=== PATIENT | female | born 1995 | race Caucasian/White ===

== ENCOUNTER 2016-02-21 14:29 | Emergency (ER) | payer SELFPAY ==
[~2016-02-21] VITALS: Ht 160 cm; Wt 74.8 kg
[~2016-02-21 14:29] MED LIST: ANAPROX275 MG PO; ATARAX,VISTARIL25 MG PO; ATARAX,VISTARIL50 MG PO; AUGMENTIN875 MG PO; CEFDINIR300 MG PO; IVERMECTIN3 MG PO; KEFLEX500 MG PO; NOHOMEMEDS; PRENATAL TABLE1 EACH PO; PYRIDIUM200 MG PO; ULTRAM50 MG PO; ZOFRAN ODT4 MG PO; ZOFRAN ODT8 MG PO; ZOFRAN4 MG PO
[2016-02-21 15:31] LABS: ADD MIUA? YES; BILIRUBIN NEGATIVE; BLOOD NEGATIVE; COLOR YELLOW ((YELLOW)); GLUCOSE (STRIP) 250; KETONES TRACE; LEUKOCYTES LARGE; NITRITE NEGATIVE; PROTEIN (STRIP) NEGATIVE; SPECIFIC GRAVITY 1.016 (1.000-1.030)
[2016-02-21 15:51] LABS: BACTERIA 1+; EPITHELIAL CELLS 2+; MUCUS NONE SEEN; RED BLOOD CELLS 0-5 /HPF (0-5); UCUL ADDED? NO; WHITE BLOOD CELLS 20-30 /HPF (0-5)
[2016-02-21 15:52] LABS: CASTS NONE SEEN /LPF; CRYSTALS NONE SEEN
[2016-02-21 15:59] LABS: HEMATOCRIT 34.7 % (36.0-46.0); MCH 29.9 PG (29.0-34.0); MCHC 34.9 G/DL (30.0-36.0); MCV 85.7 FL (83-99); MEAN PLAT.VOLUME 10.2 uM^3 (9.5-12.4); PLATELET COUNT 176 K/uL (156-360); RBC DIS.WIDTH-CV 13.7 % (11.8-14.6); RBC DIS.WIDTH-SD 41.9 % (39-53); RED BLOOD COUNT 4.05 M/uL (3.80-5.20); WHITE BLOOD COUNT 6.2 K/uL (4.1-10.2)
[2016-02-21 16:10] LABS: CHLORIDE 109 mEq/L (99-109); POTASSIUM 3.3 mEq/L (3.7-5.4); SODIUM 138 mEq/L (136-147)
[2016-02-21 16:12] LABS: GLUCOSE 129 mg/dL (70-99)
[2016-02-21 16:13] LABS: ANION GAP 10 MEQ/L (2-14)
[2016-02-21 16:16] LABS: GFR ESTIMATE (CALCULATED) > 59 mL/min/
[2016-02-21 16:17] LABS: UREA NITROGEN (BUN) 6 mg/dL (9-23)
[2016-02-21 16:25] LABS: QUANTITATIVE HCG 5785.2 MIU/ML
[2016-02-21] MEDS ORDERED: KEFLEX500 MG PO (17:30)
[2016-02-21 20:12] VITALS: BP 109/65
== END 2016-02-21 20:14 | disposition home or self-care (01) ==
LOC: EME 14:29
PROVIDERS: Emergency Medicine
DX: O20.0 Threatened abortion (principal); O23.42 Unspecified infection of urinary tract in pregnancy, second trimester; N39.0 Urinary tract infection, site not specified; Z3A.20 20 weeks gestation of pregnancy; Z87.891 Personal history of nicotine dependence
CPT/HCPCS: 76805; 80048; 81003; 84702; 85027; 99281; 99285; J0696; J7030; J7050

== ENCOUNTER 2016-03-17 22:40 | Outpatient (CLI) | payer OTHER ==
[~2016-03-17] VITALS: Ht 160 cm; Wt 77.1 kg
[2016-03-17 23:17] VITALS: BP 114/58
[2016-03-17] MEDS ORDERED: MONISTAT 745 GM VG (23:32)
== END 2016-03-18 00:05 | disposition home or self-care (01) ==
LOC: LDRP-OP 22:40 → 2WEST 22:41
DX: R10.9 Unspecified abdominal pain (principal); O99.89 Other specified diseases and conditions complicating pregnancy, childbirth and the puerperium; Z3A.23 23 weeks gestation of pregnancy
CPT/HCPCS: 59025; G0378

== ENCOUNTER 2016-04-14 16:47 | Outpatient (CLI) | payer OTHER ==
[~2016-04-14] VITALS: Ht 160 cm; Wt 78.0 kg
[~2016-04-14 16:47] MED LIST changes: +MONISTAT 745 GM VG
[2016-04-14 16:58] VITALS: BP 120/70
[2016-04-14 18:01] VITALS: BP 88/51
[2016-04-14 19:13] VITALS: BP 93/51
[2016-04-14 19:21] LABS: ADD MIUA? YES; BILIRUBIN NEGATIVE; BLOOD NEGATIVE; COLOR YELLOW ((YELLOW)); GLUCOSE (STRIP) NEGATIVE; KETONES NEGATIVE; LEUKOCYTES TRACE; NITRITE NEGATIVE; PROTEIN (STRIP) NEGATIVE; SPECIFIC GRAVITY 1.014 (1.000-1.030); UROBILINOGEN 0.2 MG/DL (0.2-1.0)
[2016-04-14 19:23] LABS: BACTERIA RARE /HPF; EPITHELIAL CELLS 1+ /HPF; MUCUS TRACE /LPF; RED BLOOD CELLS 0-5 /HPF (0-5); WHITE BLOOD CELLS 0-5 /HPF (0-5)
[2016-04-14 22:29] LABS: CANDIDA DNA PROBE NEGATIVE; GARDNERELLA DNA PROBE NEGATIVE; INTERNAL CONTROL VALID? YES
[2016-04-16 12:15] LABS: CHLAMYDIA TRACHOMATIS NEGATIVE; NEISSERIA GONORRHOEAE NEGATIVE
== END 2016-04-14 20:04 | disposition home or self-care (01) ==
LOC: LDRP-OP 16:47 → 2WEST 16:48 → LDRP-OP 08-11 00:29
PROVIDERS: Midwife; Obstetrics & Gynecology
DX: O26.892 Other specified pregnancy related conditions, second trimester (principal); Z3A.27 27 weeks gestation of pregnancy; N89.8 Other specified noninflammatory disorders of vagina; R10.9 Unspecified abdominal pain
CPT/HCPCS: 59025; 81003; 87086; 87480; 87491; 87510; 87591; 87660; G0378

== ENCOUNTER 2016-05-10 11:14 | Outpatient (CLI) | payer OTHER ==
[~2016-05-10] VITALS: Ht 160 cm; Wt 81.2 kg
[2016-05-10 11:43] VITALS: BP 131/78
== END 2016-05-10 13:22 | disposition home or self-care (01) ==
LOC: LDRP-OP 11:14 → 2WEST 11:15 → LDRP-OP 08-11 21:14
DX: O36.8130 Decreased fetal movements, third trimester, not applicable or unspecified (principal); Z3A.31 31 weeks gestation of pregnancy
CPT/HCPCS: 59025; G0378

== ENCOUNTER 2016-05-29 19:33 | Outpatient (CLI) | payer OTHER ==
[2016-05-29 20:11] VITALS: BP 119/66
[2016-05-29 20:45] LABS: ADD MIUA? YES; BILIRUBIN NEGATIVE; BLOOD NEGATIVE; COLOR YELLOW ((YELLOW)); GLUCOSE (STRIP) NEGATIVE; KETONES 80; LEUKOCYTES NEGATIVE; NITRITE NEGATIVE; PROTEIN (STRIP) NEGATIVE
[2016-05-29 21:26] LABS: BACTERIA NONE SEEN /HPF; EPITHELIAL CELLS 1+ /HPF; MUCUS 1+ /LPF; RED BLOOD CELLS 0-5 /HPF (0-5); UCUL ADDED? NO; WHITE BLOOD CELLS 0-5 /HPF (0-5)
[2016-05-29 21:46] LABS: EOSINOPHIL (%) 0.5 % (0-5); HEMATOCRIT 33.6 % (36.0-46.0); IMMATURE GRANULOCYTE (%) 0.4 % (0.0-0.7); INSTRUMENT ABS NEUTROPHIL CT 6.6 K/uL; LYMPHOCYTE COUNT 1.1 K/uL (1.0-2.8); MCH 28.3 PG (29.0-34.0); MCHC 33.3 G/DL (30.0-36.0); MCV 84.8 FL (83-99); MEAN PLAT.VOLUME 10.4 uM^3 (9.5-12.4); MONOCYTE (%) 8.3 % (3-12); MONOCYTE COUNT 0.7 K/uL (0-0.8); NEUTROPHIL (%) 77.7 % (45-76); NEUTROPHIL COUNT 6.6 K/uL (1.8-6.4); PLATELET COUNT 221 K/uL (156-360); RBC DIS.WIDTH-CV 12.2 % (11.8-14.6); RBC DIS.WIDTH-SD 37.4 % (39-53); RED BLOOD COUNT 3.96 M/uL (3.80-5.20); WHITE BLOOD COUNT 8.5 K/uL (4.1-10.2)
[2016-05-29 22:11] LABS: CANDIDA DNA PROBE NEGATIVE; GARDNERELLA DNA PROBE NEGATIVE; INTERNAL CONTROL VALID? YES
[2016-05-31 12:20] LABS: CHLAMYDIA TRACHOMATIS NEGATIVE; NEISSERIA GONORRHOEAE NEGATIVE
== END 2016-05-29 22:42 | disposition home or self-care (01) ==
LOC: LDRP-OP 19:33 → 2WEST 19:34 → LDRP-OP 08-11 14:27
PROVIDERS: Midwife
DX: O26.893 Other specified pregnancy related conditions, third trimester (principal); R10.9 Unspecified abdominal pain; R35.0 Frequency of micturition; O28.8 Other abnormal findings on antenatal screening of mother; Z3A.33 33 weeks gestation of pregnancy; Z87.891 Personal history of nicotine dependence
CPT/HCPCS: 59025; 81003; 85025; 87480; 87491; 87510; 87591; 87660; G0378; J7120

== ENCOUNTER 2016-06-01 22:31 | Outpatient (CLI) | payer OTHER ==
[2016-06-01] MEDS ORDERED: NITROFURANTOIN100 MG PO (22:50)
[2016-06-01 23:03] VITALS: BP 117/60
== END 2016-06-01 23:45 | disposition home or self-care (01) ==
LOC: LDRP-OP 22:31 → 2WEST 22:32 → LDRP-OP 08-11 23:06
DX: O26.893 Other specified pregnancy related conditions, third trimester (principal); Z3A.34 34 weeks gestation of pregnancy
CPT/HCPCS: 59025; G0378

== ENCOUNTER 2016-06-09 18:55 | Outpatient (CLI) | payer OTHER ==
[~2016-06-09] VITALS: Ht 162.6 cm; Wt 83.2 kg
[~2016-06-09 18:55] MED LIST changes: +NITROFURANTOIN100 MG PO
[2016-06-09 19:12] VITALS: BP 118/74
[2016-06-09 20:43] VITALS: BP 124/67
[2016-06-09 23:09] VITALS: BP 105/58
== END 2016-06-10 01:20 | disposition home or self-care (01) ==
LOC: LDRP-OP 18:55 → 2WEST 18:56 → LDRP-OP 08-11 23:47
DX: O47.9 False labor, unspecified (principal); Z3A.00 Weeks of gestation of pregnancy not specified
CPT/HCPCS: 59025; G0378; J2270; J2550; J7120

== ENCOUNTER 2016-06-19 18:04 | Outpatient (CLI) | payer OTHER ==
[~2016-06-19] VITALS: Ht 162.6 cm; Wt 83.9 kg
[2016-06-19 18:16] VITALS: BP 127/69
[2016-06-19 19:12] VITALS: BP 108/57
[2016-06-19 19:45] LABS: ADD MIUA? NO; BILIRUBIN NEGATIVE; BLOOD NEGATIVE; COLOR STRAW ((YELLOW)); GLUCOSE (STRIP) NEGATIVE; KETONES NEGATIVE; LEUKOCYTES NEGATIVE; NITRITE NEGATIVE; PROTEIN (STRIP) NEGATIVE; SPECIFIC GRAVITY 1.004 (1.000-1.030); UCUL ADDED? NO; UROBILINOGEN 0.2 MG/DL (0.2-1.0)
[2016-06-21 14:02] LABS: CHLAMYDIA TRACHOMATIS NEGATIVE; NEISSERIA GONORRHOEAE NEGATIVE
== END 2016-06-19 21:15 | disposition home or self-care (01) ==
LOC: LDRP-OP 18:04 → 2WEST 18:05 → LDRP-OP 08-11 01:36
PROVIDERS: Nurse Practitioner
DX: O47.03 False labor before 37 completed weeks of gestation, third trimester (principal); Z3A.36 36 weeks gestation of pregnancy
CPT/HCPCS: 59025; 81003; 87491; 87591; G0378

== ENCOUNTER 2016-06-29 08:50 | Outpatient (CLI) | payer OTHER ==
[~2016-06-29] VITALS: Ht 162.6 cm; Wt 86.2 kg
[2016-06-29 09:08] VITALS: BP 132/77
[2016-06-29 10:33] VITALS: BP 132/56
== END 2016-06-29 10:59 | disposition home or self-care (01) ==
LOC: LDRP-OP 08:50 → 2WEST 08:51 → LDRP-OP 08-11 21:25
DX: O47.1 False labor at or after 37 completed weeks of gestation (principal); O42.92 Full-term premature rupture of membranes, unspecified as to length of time between rupture and onset of labor; Z3A.38 38 weeks gestation of pregnancy; O99.513 Diseases of the respiratory system complicating pregnancy, third trimester; J45.909 Unspecified asthma, uncomplicated
CPT/HCPCS: 59025; G0378

== ENCOUNTER 2016-06-30 04:30 | Outpatient (CLI) | payer OTHER ==
[2016-06-30 04:45] VITALS: BP 111/67
[2016-06-30 04:48] VITALS: BP 111/67
[2016-06-30 06:05] VITALS: BP 115/67
[2016-06-30 07:14] VITALS: BP 111/57
[2016-06-30 09:54] VITALS: BP 118/69
[2016-07-01] MEDS ORDERED: IBUPROFEN800 MG PO (16:40)
== END 2016-06-30 10:55 | disposition home or self-care (01) ==
LOC: LDRP-OP 04:30 → 2WEST 04:31 → LDRP-OP 08-11 13:08
DX: O47.1 False labor at or after 37 completed weeks of gestation (principal); O99.820 Streptococcus B carrier state complicating pregnancy; Z3A.38 38 weeks gestation of pregnancy
CPT/HCPCS: 59025; G0378

== ENCOUNTER 2016-07-01 07:45 | Inpatient (IN) | payer OTHER ==
[2016-07-01] VITALS (19 sets, daily range): BP systolic 98–139; BP diastolic 56–87
[2016-07-01 11:01] LABS: BASOPHIL COUNT 0.1 K/uL (0-0.1); EOSINOPHIL (%) 0.2 % (0-5); HEMATOCRIT 34.6 % (36.0-46.0); IMMATURE GRANULOCYTE (%) 0.7 % (0.0-0.7); IMMATURE GRANULOCYTE COUNT 0.1 K/uL; INSTRUMENT ABS NEUTROPHIL CT 13.1 K/uL; LYMPHOCYTE COUNT 2.4 K/uL (1.0-2.8); MCH 27.6 PG (29.0-34.0); MCHC 32.9 G/DL (30.0-36.0); MCV 83.8 FL (83-99); MEAN PLAT.VOLUME 10.7 uM^3 (9.5-12.4); MONOCYTE COUNT 1.2 K/uL (0-0.8); NEUTROPHIL (%) 77.6 % (45-76); NEUTROPHIL COUNT 13.1 K/uL (1.8-6.4); PLATELET COUNT 244 K/uL (156-360); RBC DIS.WIDTH-CV 12.7 % (11.8-14.6); RBC DIS.WIDTH-SD 38.1 % (39-53); RED BLOOD COUNT 4.13 M/uL (3.80-5.20); WHITE BLOOD COUNT 16.8 K/uL (4.1-10.2)
[2016-07-01] MEDS ORDERED: IBUPROFEN800 MG PO (16:40)
[2016-07-02 07:24] VITALS: BP 100/59
[2016-07-02 23:05] VITALS: BP 109/70
[2016-07-03 14:55] VITALS: BP 110/68
== END 2016-07-03 18:10 | disposition home or self-care (01) | DRG 775 ==
LOC: LDRP-OP 07:45 → 2WEST 07:46 → LDRP-OP 08-11 12:30
PROVIDERS: Nurse Practitioner
PROC: 00HU33Z Insertion of Infusion Device into Spinal Canal, Percutaneous Approach (ICD-10-PCS; principal; 2016-07-01)
PROC: 3E0R3CZ (ICD-10-PCS; principal; 2016-07-01)
PROC: 10E0XZZ Delivery of Products of Conception, External Approach (ICD-10-PCS; principal; 2016-07-01)
DX: O99.824 Streptococcus B carrier state complicating childbirth (principal); Z3A.38 38 weeks gestation of pregnancy; Z37.0 Single live birth
CPT/HCPCS: 85025; C1755; J2540; J3010; J7120

== ENCOUNTER 2016-08-29 17:29 | Emergency (ER) | payer OTHER ==
[~2016-08-29] VITALS: Ht 162.6 cm; Wt 78.0 kg
[~2016-08-29 17:29] MED LIST changes: +IBUPROFEN800 MG PO
[2016-08-29 18:00] LABS: ADD MIUA? YES; BILIRUBIN NEGATIVE; BLOOD SMALL; COLOR STRAW ((YELLOW)); GLUCOSE (STRIP) NEGATIVE; KETONES NEGATIVE; LEUKOCYTES TRACE; NITRITE NEGATIVE; PROTEIN (STRIP) NEGATIVE; SPECIFIC GRAVITY 1.005 (1.000-1.030); UROBILINOGEN 0.2 MG/DL (0.2-1.0)
[2016-08-29 18:02] LABS: HEMATOCRIT 42.8 % (36.0-46.0); MCH 26.7 PG (29.0-34.0); MCHC 32.2 G/DL (30.0-36.0); MCV 82.9 FL (83-99); MEAN PLAT.VOLUME 9.6 uM^3 (9.5-12.4); PLATELET COUNT 312 K/uL (156-360); RBC DIS.WIDTH-CV 12.9 % (11.8-14.6); RBC DIS.WIDTH-SD 39.5 % (39-53); RED BLOOD COUNT 5.16 M/uL (3.80-5.20); WHITE BLOOD COUNT 9.4 K/uL (4.1-10.2)
[2016-08-29 18:02] LABS: BACTERIA RARE /HPF; EPITHELIAL CELLS 1+ /HPF; MUCUS TRACE /LPF; RED BLOOD CELLS 0-5 /HPF (0-5); UCUL ADDED? NO; WHITE BLOOD CELLS 0-5 /HPF (0-5)
[2016-08-29 18:13] LABS: CHLORIDE 104 mEq/L (99-109); POTASSIUM 3.8 mEq/L (3.7-5.4); SODIUM 138 mEq/L (136-147)
[2016-08-29 18:16] LABS: ANION GAP 10 MEQ/L (2-14); GLUCOSE 121 mg/dL (70-99)
[2016-08-29 18:17] LABS: TOTAL BILIRUBIN 0.3 mg/dL (0.0-1.0)
[2016-08-29 18:18] LABS: ALKALINE PHOSPHATASE 93 IU/L (3-129)
[2016-08-29 18:19] LABS: GFR ESTIMATE (CALCULATED) > 59 mL/min/
[2016-08-29 18:20] LABS: UREA NITROGEN (BUN) 10 mg/dL (9-23)
[2016-08-29 18:29] LABS: QUANTITATIVE HCG < 4.0 MIU/ML
[2016-08-29 18:30] LABS: LIPASE 36 U/L (1.0-51.0)
[2016-08-29] MEDS ORDERED: AUGMENTIN875 MG PO (18:49)
[2016-08-29] MEDS ORDERED: ZOFRAN ODT4 MG PO (18:51)
[2016-08-29 19:25] VITALS: BP 103/60
== END 2016-08-30 01:00 | disposition home or self-care (01) ==
LOC: EME 17:29
DX: H66.93 Otitis media, unspecified, bilateral (principal); R11.2 Nausea with vomiting, unspecified; Z87.891 Personal history of nicotine dependence
CPT/HCPCS: 80053; 81003; 83690; 84702; 85027; 99281; 99283; J1885

== ENCOUNTER 2016-10-18 15:13 | Emergency (ER) | payer OTHER ==
[~2016-10-18] VITALS: Ht 160 cm; Wt 80.1 kg
[2016-10-18] MEDS ORDERED: LIDOCAINE-HC 3-07 G1 PR (17:29)
[2016-10-18] MEDS ORDERED: TRAMADOL HCL50 MG PO (17:29)
[2016-10-18] MEDS ORDERED: LIDOCAINE-HC 3-07 G2 PR (17:30)
[2016-10-18] MEDS ORDERED: LIDOCAINE HC PR (17:32)
[2016-10-18 17:41] VITALS: BP 122/81
== END 2016-10-18 17:42 | disposition home or self-care (01) ==
LOC: EME 15:13
DX: L30.9 Dermatitis, unspecified (principal)
CPT/HCPCS: 99281; 99283

== ENCOUNTER 2016-12-25 01:48 | Emergency (ER) | payer OTHER ==
[~2016-12-25] VITALS: Ht 162.6 cm; Wt 78.6 kg
[~2016-12-25 01:48] MED LIST changes: +LIDOCAINE HC PR; +LIDOCAINE-HC 3-07 G1 PR; +LIDOCAINE-HC 3-07 G2 PR; +TRAMADOL HCL50 MG PO
[2016-12-25 03:10] VITALS: BP 119/76
== END 2016-12-25 03:10 | disposition home or self-care (01) ==
LOC: EME 01:48
PROC: 0HQMXZZ Repair Right Foot Skin, External Approach (ICD-10-PCS; principal; 2016-12-25)
DX: S91.311A Laceration without foreign body, right foot, initial encounter (principal); W20.8XXA Other cause of strike by thrown, projected or falling object, initial encounter; Y93.E1 Activity, personal bathing and showering; Y92.002 Bathroom of unspecified non-institutional (private) residence as the place of occurrence of the external cause; F17.200 Nicotine dependence, unspecified, uncomplicated
CPT/HCPCS: 73630; 99281; 99284

== ENCOUNTER 2017-04-13 22:31 | Emergency (ER) | payer OTHER ==
[~2017-04-13] VITALS: Ht 160 cm; Wt 78.1 kg
[2017-04-13 23:54] LABS: HEMOGLOBIN 14.3 G/DL (11.9-15.5); MCH 28.1 PG (29.0-34.0); MCV 82.7 FL (83-99); PLATELET COUNT 278 K/uL (156-360); RBC DIS.WIDTH-CV 13.1 % (11.8-14.6); RED BLOOD COUNT 5.08 M/uL (3.80-5.20); WHITE BLOOD COUNT 9.8 K/uL (4.1-10.2)
[2017-04-14 00:01] LABS: D-DIMER ELISA < 150.00 ng/mLDDU (<230)
[2017-04-14 00:04] LABS: CHLORIDE 110 mEq/L (99-109); SODIUM 142 mEq/L (136-147)
[2017-04-14 00:06] LABS: GLUCOSE 93 mg/dL (70-99)
[2017-04-14 00:10] LABS: CREATININE 0.9 mg/dL (0.6-1.3); GFR ESTIMATE (CALCULATED) > 59 mL/min/
[2017-04-14 00:11] LABS: UREA NITROGEN (BUN) 11 mg/dL (9-23)
[2017-04-14 01:21] LABS: APPEARANCE CLOUDY ((CLEAR)); BILIRUBIN NEGATIVE; BLOOD NEGATIVE; COLOR YELLOW ((YELLOW)); GLUCOSE (STRIP) NEGATIVE; KETONES NEGATIVE; LEUKOCYTES LARGE; NITRITE NEGATIVE; PROTEIN (STRIP) 30; SPECIFIC GRAVITY 1.024 (1.000-1.030); UROBILINOGEN 0.2 MG/DL (0.2-1.0)
[2017-04-14 01:35] LABS: RED BLOOD CELLS 0-5 /HPF (0-5)
[2017-04-14 01:37] LABS: EPITHELIAL CELLS 2+ /HPF; WHITE BLOOD CELLS 20-30 /HPF (0-5)
[2017-04-14 01:38] LABS: BACTERIA 2+ /HPF; MUCUS RARE /LPF
[2017-04-14 01:54] LABS: SOURCE URINE
[2017-04-14] MEDS ORDERED: KEFLEX500 MG PO (02:13)
[2017-04-14] MEDS ORDERED: INDOCIN50 MG PO (02:13)
[2017-04-14] MEDS ORDERED: PYRIDIUM200 MG PO (02:13)
[2017-04-14 02:14] LABS: CREATINE KINASE 57 IU/L (1-294)
[2017-04-14 02:36] VITALS: BP 126/71
[2017-04-15 12:26] LABS: CHLAMYDIA TRACHOMATIS NEGATIVE; NEISSERIA GONORRHOEAE NEGATIVE
== END 2017-04-14 02:37 | disposition home or self-care (01) ==
LOC: EME 22:31
PROVIDERS: Physician Assistant
DX: S29.011A Strain of muscle and tendon of front wall of thorax, initial encounter (principal); N39.0 Urinary tract infection, site not specified; F17.200 Nicotine dependence, unspecified, uncomplicated; Z91.011 Allergy to milk products
CPT/HCPCS: 71046; 80048; 81003; 82550; 85027; 85379; 87086; 87491; 87591; 93005; 99281; 99285

== ENCOUNTER 2017-05-03 20:45 | Emergency (ER) | payer OTHER ==
[~2017-05-03] VITALS: Ht 160 cm; Wt 74.2 kg
[~2017-05-03 20:45] MED LIST changes: +INDOCIN50 MG PO
[2017-05-03 21:08] LABS: HEMATOCRIT 46.7 % (36.0-46.0); HEMOGLOBIN 16.1 G/DL (11.9-15.5); MCH 28.3 PG (29.0-34.0); MCHC 34.5 G/DL (30.0-36.0); MCV 82.2 FL (83-99); PLATELET COUNT 321 K/uL (156-360); RBC DIS.WIDTH-CV 13.4 % (11.8-14.6); RBC DIS.WIDTH-SD 39.8 % (39-53); RED BLOOD COUNT 5.68 M/uL (3.80-5.20); WHITE BLOOD COUNT 11.2 K/uL (4.1-10.2)
[2017-05-03 21:19] LABS: ALBUMIN 4.7 g/dL (3.2-4.8); CHLORIDE 105 mEq/L (99-109); POTASSIUM 3.6 mEq/L (3.7-5.4); SODIUM 142 mEq/L (136-147)
[2017-05-03 21:21] LABS: GLUCOSE 120 mg/dL (70-99); TOTAL PROTEIN 8.5 g/dL (6.4-8.3)
[2017-05-03 21:25] LABS: ALKALINE PHOSPHATASE 98 IU/L (3-129); CREATININE 0.9 mg/dL (0.6-1.3); GFR ESTIMATE (CALCULATED) > 59 mL/min/
[2017-05-03 21:26] LABS: UREA NITROGEN (BUN) 19 mg/dL (9-23)
[2017-05-03 21:27] LABS: AST (GOT) 24 IU/L (2-34)
[2017-05-03 21:28] LABS: ALT (GPT) 29 IU/L (3-49)
[2017-05-03 21:33] LABS: QUANTITATIVE HCG < 4.0 MIU/ML
[2017-05-04] MEDS ORDERED: MOTRIN800 MG PO (02:27)
[2017-05-04] MEDS ORDERED: SKELAXIN800 MG PO (02:27)
[2017-05-04 02:42] VITALS: BP 120/77
== END 2017-05-04 02:43 | disposition home or self-care (01) ==
LOC: EME 20:45
DX: S00.511A Abrasion of lip, initial encounter (principal); S00.81XA Abrasion of other part of head, initial encounter; S06.9X9A Unspecified intracranial injury with loss of consciousness of unspecified duration, initial encounter; Y04.0XXA Assault by unarmed brawl or fight, initial encounter; J02.9 Acute pharyngitis, unspecified; M54.2 Cervicalgia; R06.02 Shortness of breath; R07.9 Chest pain, unspecified; R10.9 Unspecified abdominal pain; R41.3 Other amnesia; R49.0 Dysphonia; R51 Headache; F17.200 Nicotine dependence, unspecified, uncomplicated; F32.9 Major depressive disorder, single episode, unspecified; F41.9 Anxiety disorder, unspecified
CPT/HCPCS: 70450; 70486; 70491; 80053; 81003; 84702; 85027; 99281; 99285

== ENCOUNTER 2017-05-26 23:57 | Emergency (ER) | payer OTHER ==
[~2017-05-26] VITALS: Ht 162.6 cm; Wt 78.8 kg
[~2017-05-26 23:57] MED LIST changes: +MOTRIN800 MG PO; +SKELAXIN800 MG PO
[2017-05-27 00:01] VITALS: BP 131/79
[2017-05-27 00:50] LABS: ALBUMIN 4.3 g/dL (3.2-4.8); CHLORIDE 105 mEq/L (99-109); POTASSIUM 3.7 mEq/L (3.7-5.4); SODIUM 142 mEq/L (136-147)
[2017-05-27 00:52] LABS: GLUCOSE 85 mg/dL (70-99); HEMATOCRIT 41.6 % (36.0-46.0); MCH 28.4 PG (29.0-34.0); MCHC 33.7 G/DL (30.0-36.0); MCV 84.4 FL (83-99); PLATELET COUNT 276 K/uL (156-360); RBC DIS.WIDTH-CV 13.4 % (11.8-14.6); RBC DIS.WIDTH-SD 41.5 % (39-53); RED BLOOD COUNT 4.93 M/uL (3.80-5.20); WHITE BLOOD COUNT 11.1 K/uL (4.1-10.2)
[2017-05-27 00:53] LABS: TOTAL PROTEIN 7.4 g/dL (6.4-8.3)
[2017-05-27 00:54] LABS: TOTAL BILIRUBIN 0.3 mg/dL (0.0-1.0)
[2017-05-27 00:56] LABS: ALKALINE PHOSPHATASE 79 IU/L (3-129); CREATININE 0.8 mg/dL (0.6-1.3); GFR ESTIMATE (CALCULATED) > 59 mL/min/
[2017-05-27 00:57] LABS: UREA NITROGEN (BUN) 9 mg/dL (9-23)
[2017-05-27 00:58] LABS: AST (GOT) 21 IU/L (2-34)
[2017-05-27 00:59] LABS: ALT (GPT) 33 IU/L (3-49); LIPASE 27 U/L (1.0-51.0)
[2017-05-27 01:05] LABS: QUANTITATIVE HCG < 4.0 MIU/ML
[2017-05-27] MEDS ORDERED: ZANTAC150 MG PO (04:10)
[2017-05-27] MEDS ORDERED: ZOFRAN ODT4 MG PO (04:10)
== END 2017-05-27 05:00 | disposition home or self-care (01) ==
LOC: EME 23:57
DX: K29.70 Gastritis, unspecified, without bleeding (principal); F41.9 Anxiety disorder, unspecified; F32.9 Major depressive disorder, single episode, unspecified; F17.200 Nicotine dependence, unspecified, uncomplicated; Z86.79 Personal history of other diseases of the circulatory system; Z91.011 Allergy to milk products
CPT/HCPCS: 76705; 80053; 81003; 83690; 84702; 85027; 99281; 99284

== ENCOUNTER 2017-05-31 22:56 | Emergency (ER) | payer OTHER ==
[~2017-05-31] VITALS: Ht 162.6 cm; Wt 77.4 kg
[~2017-05-31 22:56] MED LIST changes: +ZANTAC150 MG PO
[2017-05-31 23:34] LABS: APPEARANCE CLOUDY ((CLEAR)); BILIRUBIN NEGATIVE; BLOOD NEGATIVE; COLOR YELLOW ((YELLOW)); GLUCOSE (STRIP) NEGATIVE; KETONES NEGATIVE; LEUKOCYTES NEGATIVE; NITRITE NEGATIVE; PROTEIN (STRIP) NEGATIVE; SPECIFIC GRAVITY 1.031 (1.000-1.030)
[2017-05-31 23:50] LABS: BACTERIA NONE SEEN /HPF; EPITHELIAL CELLS RARE /HPF; MUCUS RARE /LPF; RED BLOOD CELLS 0-5 /HPF (0-5); UCUL ADDED? NO; WHITE BLOOD CELLS 0-5 /HPF (0-5)
[2017-05-31 23:51] LABS: CALCIUM OXALATE CRYSTALS 3+ /HPF
[2017-06-01] MEDS ORDERED: NASAL DECONGEST30 MG PO (00:06)
[2017-06-01] MEDS ORDERED: FIORICET 50-301 EAC1 PO (00:06)
[2017-06-01 02:08] VITALS: BP 114/76
== END 2017-06-01 02:09 | disposition home or self-care (01) ==
LOC: RME 22:56 → EME 22:56 → RME 06-01 02:09
PROVIDERS: Emergency Medicine
DX: J02.9 Acute pharyngitis, unspecified (principal); F41.9 Anxiety disorder, unspecified; F32.9 Major depressive disorder, single episode, unspecified; F17.200 Nicotine dependence, unspecified, uncomplicated; Z86.69 Personal history of other diseases of the nervous system and sense organs; Z91.011 Allergy to milk products
CPT/HCPCS: 71045; 81003; 81025; 87651 90; 99281; 99284; J1100; J3030

== ENCOUNTER 2017-07-06 21:47 | Emergency (ER) | payer OTHER ==
[~2017-07-06] VITALS: Ht 162.6 cm; Wt 75.1 kg
[~2017-07-06 21:47] MED LIST changes: +FIORICET 50-301 EAC1 PO; +NASAL DECONGEST30 MG PO
[2017-07-07] MEDS ORDERED: MEDROL DOSEPAK4 MG PO (00:05)
[2017-07-07 00:16] VITALS: BP 106/59
== END 2017-07-07 00:17 | disposition home or self-care (01) ==
LOC: EME 21:47 → EXP 21:47
DX: L50.9 Urticaria, unspecified (principal); F41.9 Anxiety disorder, unspecified; F32.9 Major depressive disorder, single episode, unspecified; F17.200 Nicotine dependence, unspecified, uncomplicated; E73.9 Lactose intolerance, unspecified
CPT/HCPCS: 99281; 99283

== ENCOUNTER 2017-08-13 20:18 | Emergency (ER) | payer OTHER ==
[~2017-08-13] VITALS: Ht 162.6 cm; Wt 73.3 kg
[~2017-08-13 20:18] MED LIST changes: +MEDROL DOSEPAK4 MG PO
[2017-08-13 21:45] LABS: QUANTITATIVE HCG < 4.0 MIU/ML
[2017-08-13 22:16] LABS: BASOPHIL (%) 0.6 % (0-1); BASOPHIL COUNT 0.1 K/uL (0-0.1); EOSINOPHIL (%) 1.2 % (0-5); EOSINOPHIL COUNT 0.1 K/uL (0-0.3); HEMATOCRIT 44.3 % (36.0-46.0); HEMOGLOBIN 14.5 G/DL (11.9-15.5); IMMATURE GRANULOCYTE (%) 0.4 % (0.0-0.7); LYMPHOCYTE (%) 25.4 % (15-42); LYMPHOCYTE COUNT 3.1 K/uL (1.0-2.8); MCH 27.8 PG (29.0-34.0); MCHC 32.7 G/DL (30.0-36.0); MCV 84.9 FL (83-99); NEUTROPHIL (%) 64.4 % (45-76); NEUTROPHIL COUNT 7.8 K/uL (1.8-6.4); PLATELET COUNT 314 K/uL (156-360); RBC DIS.WIDTH-SD 40.4 % (39-53); RED BLOOD COUNT 5.22 M/uL (3.80-5.20)
[2017-08-13 22:20] LABS: ALBUMIN 4.5 g/dL (3.2-4.8)
[2017-08-13 22:21] LABS: CHLORIDE 106 mEq/L (99-109); POTASSIUM 4.2 mEq/L (3.7-5.4); SODIUM 140 mEq/L (136-147)
[2017-08-13 22:23] LABS: GLUCOSE 79 mg/dL (70-99); TOTAL PROTEIN 7.8 g/dL (6.4-8.3)
[2017-08-13 22:25] LABS: TOTAL BILIRUBIN 0.3 mg/dL (0.0-1.0)
[2017-08-13 22:25] LABS: APPEARANCE SL.HAZY ((CLEAR)); BILIRUBIN NEGATIVE; BLOOD NEGATIVE; COLOR YELLOW ((YELLOW)); GLUCOSE (STRIP) NEGATIVE; KETONES NEGATIVE; LEUKOCYTES LARGE; NITRITE NEGATIVE; PROTEIN (STRIP) NEGATIVE
[2017-08-13 22:26] LABS: ALKALINE PHOSPHATASE 80 IU/L (3-129)
[2017-08-13 22:27] LABS: CREATININE 0.9 mg/dL (0.6-1.3); GFR ESTIMATE (CALCULATED) > 59 mL/min/
[2017-08-13 22:28] LABS: AST (GOT) 23 IU/L (2-34); UREA NITROGEN (BUN) 14 mg/dL (9-23)
[2017-08-13 22:29] LABS: ALT (GPT) 38 IU/L (3-49)
[2017-08-13 22:33] LABS: BACTERIA RARE /HPF; EPITHELIAL CELLS 2+ /HPF; MUCUS NONE SEEN /LPF; RED BLOOD CELLS 20-30 /HPF (0-5); UCUL ADDED? YES; WHITE BLOOD CELLS TNTC /HPF (0-5)
[2017-08-13] MEDS ORDERED: KEFLEX500 MG PO (22:37)
[2017-08-13] MEDS ORDERED: ZOFRAN4 MG PO (22:37)
[2017-08-13] MEDS ORDERED: PYRIDIUM200 MG PO (22:48)
[2017-08-13 22:49] VITALS: BP 122/67
== END 2017-08-13 22:50 | disposition home or self-care (01) ==
LOC: EME 20:18
PROVIDERS: Nurse Practitioner Family
DX: N39.0 Urinary tract infection, site not specified (principal); R11.2 Nausea with vomiting, unspecified; Z32.02 Encounter for pregnancy test, result negative; F17.200 Nicotine dependence, unspecified, uncomplicated
CPT/HCPCS: 80053; 81003; 84702; 85025; 87086; 99281; 99284

== ENCOUNTER 2017-09-03 02:02 | Emergency (ER) | payer OTHER ==
[~2017-09-03] VITALS: Ht 167.6 cm; Wt 75.0 kg
[2017-09-03] MEDS ORDERED: VOLTAREN75 MG PO (04:26)
[2017-09-03 04:50] VITALS: BP 107/83
== END 2017-09-03 04:51 | disposition home or self-care (01) ==
LOC: EME 02:02
DX: S93.401A Sprain of unspecified ligament of right ankle, initial encounter (principal); S83.91XA Sprain of unspecified site of right knee, initial encounter; S73.101A Unspecified sprain of right hip, initial encounter; W01.0XXA Fall on same level from slipping, tripping and stumbling without subsequent striking against object, initial encounter
CPT/HCPCS: 73502; 73564; 73610; 99281; 99284

== ENCOUNTER 2017-09-18 21:48 | Emergency (ER) | payer OTHER ==
[~2017-09-18] VITALS: Ht 162.6 cm; Wt 71.4 kg
[~2017-09-18 21:48] MED LIST changes: +VOLTAREN75 MG PO
[2017-09-18 22:36] LABS: HEMATOCRIT 39.7 % (36.0-46.0); HEMOGLOBIN 13.3 G/DL (11.9-15.5); MCH 28.2 PG (29.0-34.0); MCHC 33.5 G/DL (30.0-36.0); MCV 84.1 FL (83-99); PLATELET COUNT 281 K/uL (156-360); RBC DIS.WIDTH-CV 12.8 % (11.8-14.6); RBC DIS.WIDTH-SD 38.9 % (39-53); RED BLOOD COUNT 4.72 M/uL (3.80-5.20); WHITE BLOOD COUNT 11.3 K/uL (4.1-10.2)
[2017-09-18 22:38] LABS: APPEARANCE SL.HAZY ((CLEAR)); BILIRUBIN NEGATIVE; BLOOD SMALL; COLOR YELLOW ((YELLOW)); GLUCOSE (STRIP) NEGATIVE; KETONES NEGATIVE; LEUKOCYTES LARGE; NITRITE NEGATIVE; PROTEIN (STRIP) NEGATIVE; SPECIFIC GRAVITY 1.011 (1.000-1.030)
[2017-09-18 22:44] LABS: BACTERIA RARE /HPF; EPITHELIAL CELLS 1+ /HPF; MUCUS TRACE /LPF; UCUL ADDED? YES; WHITE BLOOD CELLS TNTC /HPF (0-5)
[2017-09-18 22:48] LABS: ALBUMIN 4.1 g/dL (3.2-4.8); CHLORIDE 102 mEq/L (99-109); POTASSIUM 3.9 mEq/L (3.7-5.4); SODIUM 138 mEq/L (136-147)
[2017-09-18 22:50] LABS: GLUCOSE 88 mg/dL (70-99); TOTAL PROTEIN 7.7 g/dL (6.4-8.3)
[2017-09-18 22:52] LABS: TOTAL BILIRUBIN 0.5 mg/dL (0.0-1.0)
[2017-09-18 22:54] LABS: ALKALINE PHOSPHATASE 81 IU/L (3-129); CREATININE 0.8 mg/dL (0.6-1.3); GFR ESTIMATE (CALCULATED) > 59 mL/min/
[2017-09-18 22:55] LABS: AST (GOT) 18 IU/L (2-34); UREA NITROGEN (BUN) 14 mg/dL (9-23)
[2017-09-18 22:57] LABS: ALT (GPT) 23 IU/L (3-49)
[2017-09-18 23:04] LABS: QUANTITATIVE HCG < 4.0 MIU/ML
[2017-09-18] MEDS ORDERED: PYRIDIUM200 MG PO (23:24)
[2017-09-18] MEDS ORDERED: CIPRO500 MG PO (23:24)
[2017-09-18 23:41] VITALS: BP 118/73
== END 2017-09-18 23:42 | disposition home or self-care (01) ==
LOC: EME 21:48
PROVIDERS: Physician Assistant
DX: N39.0 Urinary tract infection, site not specified (principal); J45.909 Unspecified asthma, uncomplicated; F41.9 Anxiety disorder, unspecified; F32.9 Major depressive disorder, single episode, unspecified; F17.200 Nicotine dependence, unspecified, uncomplicated; E73.9 Lactose intolerance, unspecified; Z91.5 Personal history of self-harm
CPT/HCPCS: 80053; 81003; 84702; 85027; 87086; 99281; 99284